=== PATIENT | female | born 1955 | race Caucasian/White ===

== ENCOUNTER → 2016-07-27 | Outpatient (CLI) | payer OTHER | END | disposition home or self-care (01) | LOC: PCVCIMAG 08:51 | PROVIDERS: ATTEND Internal Medicine Cardiovascular Disease | DX: I42.8 Other cardiomyopathies (principal); R00.2 Palpitations; I44.7 Left bundle-branch block, unspecified; K21.9 Gastro-esophageal reflux disease without esophagitis | CPT/HCPCS: 93005; 93306; G0463 ==

== ENCOUNTER → 2018-07-04 | Outpatient (CLI) | payer OTHER ==
--- NOTE | 2018-07-04 09:43 | PCVCIMAG ---
APPROVED REPORT Study performed: 07/04/2018 08:27:25 EXAM: Comprehensive 2D, Doppler, and color-flow Echocardiogram Patient Location: Echo lab Status: routine BSA: 1.62 HR: 62 bpmBP: 134/72 mmHg Rhythm: LBBB Other Information Study Quality: Adequate Risk Factors: Cardiac Risk Factors: HTN Indications Cardiomyopathy LBBB 2D Dimensions IVSd: 10.80 (7-11mm) LVDd: 36.81 mm PWd: 8.61 (7-11mm) LVDs: 30.37 (25-40mm) Left Atrium: 32.90 (27-40mm) Aortic Root: 27.81 mm LV Single Plane 4CH: 44.99 % LV Single Plane 2CH: 49.69 % Biplane EF: 48.3 % Volumes Left Atrial Volume (Systole) Single Plane 4CH: 44.05 mLSingle Plane 2CH: 39.67 mL LA ESV Index: 26.00 mL/m2 Aortic Valve AoV Peak Jayson.: 1.27 m/s AO Peak Gr.: 6.41 mmHgLVOT Max P.67 mmHg LVOT Max V: 0.96 m/s Mitral Valve E/A Ratio: 0.8 MV Decel. Time: 266.18 ms MV E Max Jayson.: 0.45 m/s MV A Jayson.: 0.57 m/s IVRT: 131.49 ms Pulmonary Valve PV Peak Jayson.: 1.04 m/sPV Peak Gr.: 4.29 mmHg Pulmonary Vein P Vein S: 0.30 m/sP Vein A: 0.36 m/s P Vein D: 0.39 m/sP Vein A Dur.: 124.6 msec P Vein S/D Ratio: 0.77 Tricuspid Valve TR Peak Jayson.: 2.13 m/s TR Peak Gr.: 18.13 mmHg TV Vmax: 0.35 m/s Left Ventricle The left ventricle is normal size. There is normal LV segmental wall motion. There is normal left ventricular wall thickness. Left ventricular systolic function is mildly decreased. Discordant septal motion with LBBB. LVEF is 45%. Grade I - abnormal relaxation pattern. Right Ventricle The right ventricle is normal size. The right ventricular systolic function is normal. Atria The left atrium size is normal. The right atrium size is normal. Aortic Valve The aortic valve is normal in structure. No aortic regurgitation is present. There is no aortic valvular stenosis. Mitral Valve The mitral valve is normal in structure. Mild mitral regurgitation. No evidence of mitral valve stenosis. Tricuspid Valve The tricuspid valve is normal in structure. Trace tricuspid regurgitation with PAP of 25 mmHg. Pulmonic Valve The pulmonary valve is normal in structure. There is no pulmonic valvular regurgitation. Great Vessels The aortic root is normal in size. IVC is normal in size and collapses >50% with inspiration. Pericardium There is no pericardial effusion. There is no pleural effusion. <Conclusion> The left ventricle is normal size. There is normal left ventricular wall thickness. Left ventricular systolic function is mildly decreased. Discordant septal motion with LBBB. Grade I - abnormal relaxation pattern. The right ventricle is normal size. The left atrium size is normal. The aortic valve is normal in structure. Mild mitral regurgitation. Trace tricuspid regurgitation with PAP of 25 mmHg.
== END | disposition home or self-care (01) ==
LOC: PCVCIMAG 09:01
PROVIDERS: ATTEND Internal Medicine Cardiovascular Disease
DX: I34.0 Nonrheumatic mitral (valve) insufficiency (principal); I42.9 Cardiomyopathy, unspecified; I44.7 Left bundle-branch block, unspecified
CPT/HCPCS: 93306

== ENCOUNTER → 2019-04-03 | Outpatient (CLI) | payer OTHER ==
[~2019-04-03] MED LIST: REGADENOSON 0.4 MG/5 ML DISP.SYRIN. IV ONE
--- NOTE | 2019-04-03 11:47 | PCVCIMAG ---
APPROVED REPORT Imaging Protocol: Rest Tc-99m/Stress Tc-99m 1 day Study performed: 04/03/2019 09:22:14 Indication: CM-Nonischemic, LBBB Patient Location: Out-Patient Stress Nurse: Denice Jones RN, Micheline Luna RN [place] Tech:Montez ALEXANDRA TempletonMT Ht: 5 ft 3 in Wt: 132 lbs BSA: 1.62 m2 HR: 76 bpm BP: 130/64 mmHg BMI: 23.38 Rhythm: Sinus Rhythm, Left Bundle Branch Block Medical History Medical History: Age, HLP, HTN, Former Tobacco User Medications: Metoprolol, Crestor Allergies: Flu Vaccine, Iodine, Levaquin, Shrimp Resting Data Rest SPECT myocardial perfusion imaging was performed in supine position 45 minutes following the intravenous injection of 11.0 mCi of Tc-99m Sestamibi. Time of rest injection: 824 Date: 04/03/2019 Administration Route: IV Administration Site: Left AC Pharmacologic Stress Pharmacologic stress test was performed by injecting Regadenoson 0.4 mg IV push over 10-15 seconds immediately followed by the intravenous injection of 30.5 mCi of Tc-99m Sestamibi. Time of stress injection: 954 Date: 04/03/2019 Administration Route: IV Administration Site: Left AC Gated Stress SPECT was performed 45 minutes after stress injection. The images were gated to evaluate regional wall motion and calculate left ventricular ejection fraction. Stress Test Details Stress Test: Pharmacologic stress was paired with low level exercise. Reason for pharmacologic stress test: LBBB. HRMax Heart Rate (APMHR): 156 bpm Resting HR: 76 bpmTarget HR (85% APMHR): 132 bpm Max HR Achieved: 148 bpm % of APMHR: 94 Recovery HR: 112 bpm BP Resting BP: 130/64 mmHg Max BP: 141/70 mmHg Recovery BP: 141/72 mmHg ECG Resting ECG: Sinus Rhythm, Left Bundle Branch Block Stress ECG: Sinus Tachycardia, Left Bundle Branch Block ST Change: Nondiagnostic LBBB Arrhythmia: VPC's Recovery ECG: Sinus Tachycardia, Left Bundle Branch Block Clinical Reason for Termination: Completed protocol Stress Symptoms: Headache Symptoms resolved during recovery. Study Quality Study: Good Artifact: Mild Breast artifact Study Data Post stress, the left ventricular ejection was 72%.. SSS: 6 SRS: 7 SDS: 2 TID = 0.89. Perfusion There is a small area of mildly reduced uptake in the apical segment of the anterior wall which is seen on the stress images as well as the resting images. This area thickens and moves normally and is most consistent with attenuation artifact. Wall Motion Normal left ventricular wall motion. Nuclear Conclusion ECG Findings: non-diagnostic Clinical Findings: non-diagnostic Nuclear Findings: negative for ischemia Exercise Capacity: not assessed Left Ventricular Function: normal Risk Study: low This study is of low probability for inducible ischemia or prior infarct. Normal global and segmental LV systolic function. Artifact: Mild Breast artifact
== END | disposition home or self-care (01) ==
LOC: PCVCIMAG 08:49
PROVIDERS: ATTEND Internal Medicine Cardiovascular Disease
DX: I44.7 Left bundle-branch block, unspecified (principal); I42.9 Cardiomyopathy, unspecified
CPT/HCPCS: 78452; 93017; A9500; J2785